=== PATIENT | male | born 1970 | race Caucasian/White ===

== ENCOUNTER 2025-07-29 10:57 | Day surgery (SDC) | payer BC, SELFPAY ==
[2025-07-29 11:07] VITALS: BMI 28.2
[2025-07-29 11:08] VITALS: BP 152/91; PULSE 80; RESP 18; TEMP 36.1; O2SAT 97
--- NOTE | 2025-07-29 11:44 | ANES.PREANE2 ---
Pre-Anesthetic Assessment Height/Weight: Height 1.75 m Weight 86.636 kg Temp Pulse Resp BP Pulse Ox O2 Del Method 97.0 F L 80 18 152/91 97 Room Air 07/29/25 11:08 07/29/25 11:08 07/29/25 11:08 07/29/25 11:08 07/29/25 11:08 07/29/25 11:08 Preop Diagnosis: screening Operation Date: 07/29/25 12:15 Proposed Procedures p Colonoscopy [id number] [id number] Z12.11(Not Applicable) - Santana Mojica MD Familial anesthetic complications: none Was Beta Dilcia taken within 24 hours: N/A Was Clonidine taken within 24 hours: N/A Last intake: Intake Last Liquid Date 07/28/25 Last Liquid Time 21:30 Last Solid Date 07/27/25 Social No alcohol and No tobacco Exam alert, oriented x 3, clear to auscultation bilaterally and regular rate & rhythm Airway Submandibular: within normal limits Cervical ROM: within normal limits Mallampati: Class II Dentition: full History/ROS No significant history except as noted and No significant complaints Pulmonary None reported CV/HEM Hypertension Not started HTN meds yet. None reported Hepatic None reported GI None reported Metabolic None reported Musc/skel None reported Neuropsych Anxiety Anesthetic Plan ASA status: 2 Anesthesia: MAC Risk of > 500 ml blood loss (7ml/kg in children): No Medications/Allergies Home Medications ?Medication ?Instructions ?Recorded ?Confirmed ?Last Taken ?Type No Known Home Medications 06/30/25 07/23/25 Unknown History Allergies Allergy/AdvReac Type Severity Reaction Status Date / Time Penicillins Allergy Unknown Unknown Verified 07/23/25 09:27 venlafaxine (From Effexor) Allergy ALGY-Hives Verified 07/23/25 09:27 Current Medications Generic Name Dose Route Start Last Admin Trade Name Freq PRN Reason Stop Dose Admin Sodium Chloride 1,000 mls @ 15 mls/hr 07/29/25 11:05 07/29/25 11:13 Sodium Chloride 0.9% IV 07/30/25 11:04 15 mls/hr .Q24H PRN Administration COLONOSCOPY FLUIDS PFSH Anesthesia Family History (Updated 06/30/25 @ 13:32 by PAULO Awad) Family/Other Colon cancer aunt Social History Smoking and tobacco/nicotine status: current every day tobacco/nicotine user (vape/nicotine)
--- NOTE | 2025-07-29 11:56 | W.PM.OPSUD ---
Surgery/Procedure H&P Update DATE OF PROCEDURE: July 29, 2025 DATE H&P PERFORMED: 06/30/25 H&P UPDATE INFORMATION: I have reviewed H&P completed within last 30 days, I have examined patient prior to procedure, No changes to prior documentation and Risks and benefits of the procedure reviewed PREOP DIAGNOSIS: screening PLANNED PROCEDURE: Operation Date: 07/29/25 12:15 Proposed Procedures p Colonoscopy [id number] [id number] Z12.11(Not Applicable) - Santana Mojica MD
[2025-07-29 12:14] VITALS: BP 97/69; PULSE 77; RESP 16; TEMP 36.4; O2SAT 94
--- NOTE | 2025-07-29 12:14 | ANE.PACU2 ---
Inpatient post-anesthesia follow up: Airway intact: Yes Vital signs: Temperature 97.6 F Pulse Rate 70 Respiratory Rate 16 Blood Pressure 113/83 Pulse Oximetry 94 Oxygen Delivery Me thod Room Air Oxygen Flow Rate Fraction of Inspir ed Oxygen Hydration adequate: Yes Nausea and vomiting: No Pain level: 1 Mental status: Baseline
[2025-07-29 12:29] VITALS: BP 107/73; PULSE 87; RESP 16; O2SAT 93
[2025-07-29 12:40] VITALS: BP 113/83; PULSE 70; RESP 16; O2SAT 94
== END 2025-07-29 12:52 | disposition home or self-care (01) ==
PROVIDERS: PCP Nurse Practitioner Family; Visit Provider Student in an Organized Health Care Education/Training Program
PROC: 0DJD8ZZ Inspection of Lower Intestinal Tract, Via Natural or Artificial Opening Endoscopic (ICD-10-PCS; CPT 45378; principal; 2025-07-29 12:15)
DX: Z12.11 Encounter for screening for malignant neoplasm of colon (principal); K62.1 Rectal polyp; Z80.0 Family history of malignant neoplasm of digestive organs; F17.290 Nicotine dependence, other tobacco product, uncomplicated; I10 Essential (primary) hypertension; F41.9 Anxiety disorder, unspecified
CPT/HCPCS: 45380; 45385; 88305; J2704; J7030